=== PATIENT | female | born 1985 | race Hispanic/Latino ===

== ENCOUNTER 2018-12-27 15:55 | Emergency (ER) | payer SELFPAY ==
[2018-12-27 17:09] LABS: CREATININE 0.9 mg/dL (0.5-1.5); POTASSIUM 3.7 mmol/L (3.5-5.1)
[2018-12-27 17:11] LABS: BASOPHILS % (AUTO) 1.1 % (0.0-5.0); EOSINOPHILS % (AUTO) 2.4 % (0.0-8.0); HEMATOCRIT 39.5 % (36-48); LYMPHOCYTES % (AUTO) 27.9 % (21.0-51.0); MEAN CORPUSCULAR HEMOGLOBIN 30.2 pg (27.0-33.0); MEAN CORPUSCULAR HGB CONC 33.7 g/dL (32.0-36.0); MEAN CORPUSCULAR VOLUME 89.6 fL (79-99); MONOCYTES % (AUTO) 5.4 % (3.0-13.0); NEUTROPHILS % (AUTO) 63.2 % (40.0-77.0); PLATELET COUNT (AUTO) 268 K/uL (130-400); RED BLOOD CELL COUNT(AUTO) 4.41 MIL/uL (4.00-5.50); RED CELL DISTRIBUTION WIDTH 14.6 % (11.0-15.5); WHITE BLOOD COUNT (AUTO) 7.2 K/uL (4.8-10.8)
[2018-12-27 17:14] LABS: ALBUMIN 3.8 g/dL (3.5-5.0); BILIRUBIN,TOTAL 0.5 mg/dL (0.2-1.0); TOTAL PROTEIN, SERUM 7.7 g/dL (6.0-8.3)
[2018-12-27] MEDS ORDERED: IBUPROFEN 600 MG TABLET ONE (17:37)
== END 2018-12-27 17:58 | disposition home or self-care (01) ==
LOC: EDH 15:55
DX: R07.89 Other chest pain (principal); R07.81 Pleurodynia
CPT/HCPCS: 36415; 71045; 80053; 81025; 84484; 85025; 93005

== ENCOUNTER 2021-10-25 22:33 | Emergency (ER) | payer OTHER ==
[~2021-10-25] VITALS: Ht 157.5 cm; Wt 81.6 kg
[2021-10-25 22:38] VITALS: BP 134/91
[2021-10-25] MEDS ORDERED: NAPR500T6 PO (23:25)
[2021-10-25] MEDS ORDERED: ACET1TAB25 PO (23:25)
[2021-10-25] MEDS ORDERED: AMOX1TAB16 PO (23:25)
[2021-10-25] MEDS ORDERED: KETOROLAC 30MG VIAL (30MG/ML) IM ONE (23:30)
[2021-10-25] MEDS ORDERED: ACETAMINOPHEN WITH CODEINE 1 TAB TAB PO ONE (23:30)
[2021-10-25] MEDS ORDERED: AMOX/CLAV 875/125MG TAB PO ONE (23:30)
== END 2021-10-25 23:29 | disposition home or self-care (01) ==
LOC: EDH 22:33
DX: K08.89 Other specified disorders of teeth and supporting structures (principal); R22.0 Localized swelling, mass and lump, head; Z79.899 Other long term (current) drug therapy
CPT/HCPCS: 96372; 99283; J1885

== ENCOUNTER 2022-06-29 00:39 | Emergency (ER) | payer OTHER ==
[~2022-06-29] VITALS: Ht 157.5 cm; Wt 88.0 kg
[~2022-06-29 00:39] MED LIST: ACET-2079 PO; AMOX1TAB16 PO; NAPR500T6 PO
[2022-06-29] MEDS ORDERED: IBUP-1493 PO (01:49)
[2022-06-29] MEDS ORDERED: AMOX500C2 PO (01:49)
[2022-06-29 02:30] VITALS: BP 135/63
== END 2022-06-29 02:37 | disposition home or self-care (01) ==
LOC: EDH 00:39
DX: K04.7 Periapical abscess without sinus (principal); Z79.1 Long term (current) use of non-steroidal anti-inflammatories (NSAID)

== ENCOUNTER 2023-08-15 08:19 | Emergency (ER) | payer BC, OTHER ==
[~2023-08-15] VITALS: Ht 157.5 cm; Wt 74.8 kg
[~2023-08-15 08:19] MED LIST changes: +AMOX500C2 PO; +IBUP-1493 PO
[2023-08-15 09:15] LABS: BASOPHILS # (AUTO) 0.03 K/uL (0.00-0.20); BASOPHILS % (AUTO) 0.3 % (0.0-5.0); EOSINOPHILS # (AUTO) 0.04 K/uL (0.00-0.70); EOSINOPHILS % (AUTO) 0.4 % (0.0-8.0); HEMATOCRIT 47.7 % (36-48); IMMATURE GRANULOCYTE ABSOLUTE 0.04 K/uL (0-1); LYMPHOCYTES # (AUTO) 0.6 K/uL (1.0-4.8); MEAN CORPUSCULAR HEMOGLOBIN 30.7 pg (27.0-33.0); MEAN CORPUSCULAR HGB CONC 33.5 g/dL (32.0-36.0); MEAN CORPUSCULAR VOLUME 91.4 fL (79-99); MONOCYTES # (AUTO) 0.3 K/uL (0.1-1.0); MONOCYTES % (AUTO) 2.7 % (3.0-13.0); NEUTROPHILS % (AUTO) 91.2 % (40.0-77.0); PLATELET COUNT (AUTO) 235 K/uL (130-400); RED BLOOD CELL COUNT(AUTO) 5.22 MIL/uL (4.00-5.50); RED CELL DISTRIBUTION WIDTH 13.4 % (11.0-15.5)
[2023-08-15 09:26] LABS: CREATININE 0.8 mg/dL (0.5-1.5); POTASSIUM 4.3 mmol/L (3.5-5.1)
[2023-08-15 09:29] LABS: APPEARANCE,URINE CLOUDY (CLEAR); BILIRUBIN,URINE NEGATIVE (NEGATIVE); COLOR,URINE YELLOW (YELLOW); GLUCOSE, URINE (UA) NEGATIVE (NEGATIVE); KETONES,URINE 40 mg/dL (NEGATIVE); LEUKOCYTE ESTERASE ,URINE 500 Leu/uL (NEGATIVE); NITRATE,URINE NEGATIVE (NEGATIVE); OCCULT BLOOD,URINE SMALL (NEGATIVE); PROTEIN,URINE 20 mg/dL (NEGATIVE); UROBILINOGEN,URINE 0.2 mg/dL (0.2-1.0)
[2023-08-15 09:31] LABS: BILIRUBIN,TOTAL 1.4 mg/dL (0.2-1.0); TOTAL PROTEIN, SERUM 8.5 g/dL (6.0-8.3)
[2023-08-15 09:42] LABS: ADD UA MICROSCOPIC YES
[2023-08-15 09:44] LABS: BACTERIA,URINE RARE /HPF (None Seen); MUCUS,URINE RARE LPF (None Seen); SQUAMOUS EPITHELIAL CELL,UR MANY /HPF (0-2)
[2023-08-15] MEDS ORDERED: IBUPROFEN 600 MG TABLET PO ONE (10:00)
[2023-08-15] MEDS ORDERED: ONDANSETRON ODT 4MG TAB SL ONE (10:00)
[2023-08-15] MEDS ORDERED: FAMO20TA8 PO (11:15)
[2023-08-15] MEDS ORDERED: CEPH500B PO (11:15)
[2023-08-15 11:23] VITALS: BP 131/78; PULSE 78; RESP 18; O2SAT 99
== END 2023-08-15 11:27 | disposition home or self-care (01) ==
LOC: EDH 08:19
DX: N39.0 Urinary tract infection, site not specified (principal); K80.20 Calculus of gallbladder without cholecystitis without obstruction
CPT/HCPCS: 36415; 76705; 80053; 81001; 85025; 87088

== ENCOUNTER 2024-08-26 05:47 | Emergency (ER) | payer BC ==
[~2024-08-26] VITALS: Ht 157.5 cm; Wt 81.6 kg
[~2024-08-26 05:47] MED LIST changes: +CEPH500B PO; +FAMO20TA8 PO; +NAPR-1506 PO; -NAPR500T6 PO
[2024-08-26 05:48] VITALS: TEMP 98.7
--- NOTE | 2024-08-26 06:10 | NUR ---
PT CARE ASSUMED AT THIS TIME
[2024-08-26] MEDS: ibuPROFEN 600 MG TABLET PO ONE (06:17)
[2024-08-26 06:21] VITALS: BP 115/68; PULSE 71; RESP 18; O2SAT 100
--- NOTE | 2024-08-26 06:40 | ERN ---
ED Note History of Present Illness Stated Complaint: WRIST INJURY Chief Complaint: Wrist Pain/Injury Time Seen by MD: 06:01 Dictation: 39-year-old female presented to the ER complaining of right side wrist pain, states that she fell on her wrist about 4 months ago, never had a workup done in the recently possible folic ago she noticing a bump on her right wrist which became painful lately. Allergies: Coded Allergies: No Known Drug Allergies (Unverified Allergy, Unknown, 10/25/21) Home Meds Active Scripts Ibuprofen (Ibuprofen) 600 Mg Tablet, 1 TAB PO TID for pain for 5 Days, #20 TAB 0 Refills with food Prov:GENEVA BHATIA MD 08/26/24 Famotidine (Famotidine) 20 Mg Tablet, 20 MG PO DAILY, #30 TAB Prov:VITA ALBERT [facility] 08/15/23 Cephalexin Monohydrate (Keflex) 500 Mg Cap, 500 MG PO TID for 7 Days, #21 CAP Prov:VITA ALBERT V [facility] 08/15/23 Ibuprofen (Motrin/Advil) 800 Mg Tab, 800 MG PO TID PRN for PAIN, #30 TAB Prov:BOZENA PALACIOS MD 06/29/22 Amoxicillin (Amoxicillin) 500 Mg Capsule, 500 MG PO TID for 10 Days, #30 CAP 0 Refills Prov:BOZENA PALACIOS MD 06/29/22 Acetaminophen with Codeine (Acetaminophen-Cod #3 Tablet) 1 Each Tablet, 1 EACH PO Q4HPRN PRN for PAIN LEVEL 7 TO 10, #7 TAB Prov:JOSY BEY 10/25/21 Naproxen (Naproxen) 500 Mg Tablet.dr, 500 MG PO BIDPC, #15 TAB Prov:JOSY BEY 10/25/21 Amoxicillin/Potassium Clav (Amox Tr-K Clv 875-125 mg Tab) 1 Each Tablet, 1 EACH PO BID, #15 TAB Prov:JOSY BEY 10/25/21 Past Medical History Past Medical History: No Pertinent History Surgical History: BTL Family History: HTN Social History: ETOH, Lives with family LMP: Aug 17, 2024 Review of System Dictation NEGATIVE EXCEPT PER HPI Constitutional: Negative for fever,chills, and weight loss Eyes: Negative for injury, pain,redness, and discharge ENT: Negative for injury,pain or swelling Cardiovascular: denies chest pain, palpitations, and edema Respiratory: Negative for shortness of breath, cough, and wheezing, Abdomen/GI: Negative for abdominal pain, nausea, vomiting, diarrhea, and constipation Back: Negative for injury and pain : Negative for injury, bleeding and discharge MS/Extremity: Right wrist pain Skin: Negative for rash, and discoloration Neuro: Negative for headache, weakness, numbness, tingling, and seizure Psych: Negative for suicide ideation, homicidal ideation, and hallucinations Initial Vital Sign VS Vital Signs Date Time Temp Pulse Resp B/P (MAP) Pulse Ox O2 Delivery O2 Flow Rate FiO2 08/26/24 05:48 98.8 72 18 120/73 98 Room Air 0 08/26/24 06:21 21 Physical Exam Dictation General: awake, alert, NAD Head/Face: Normocephalic, atraumatic Eyes: PERRL, EOMI, vision at baseline ENT: oral cavity clear, TMs clear, no signs of infection Neck: Trachea midline, supple, no nuchal rigidity Cardiovascular: RRR, normal S1/S2, No MRGs, no JVD Respiratory: CTAB, no respiratory distress, No rales or wheezes Abdomen: Soft , no tender Skin: Warm, dry, normal turgor, no rash MS/Extremity: Right wrist mass likely a ganglion cyst which is tender to palpation. Neuro: COAx4, GCS 15, strength 5/5, CN 2-12 intact, normal cerebellar exam, normal gait, Psych: Normal behavior, mood, and affect normal ED Course ED Course Orders Procedure Category Date Status Time Wrist Comp 3+Vws Rt RAD 08/26/24 Taken 06:08 Ibuprofen 600 Mg PHA 08/26/24 Complete Tablet (Motrin) 06:30 Current Medications Medications (Trade) Dose Ordered Sig/Deon Route PRN Reason Start Time Stop Time Status Last Admin Dose Admin Ibuprofen (moTRIN) 600 mg ONCE ONCE PO 08/26/24 06:30 08/26/24 06:31 DC 08/26/24 06:17 Vital Signs Date Time Temp Pulse Resp B/P (MAP) Pulse Ox O2 Delivery O2 Flow Rate FiO2 08/26/24 06:21 71 18 115/68 100 Room Air* 0 21 08/26/24 05:48 98.8 72 18 120/73 98 Room Air 0 Medical Decision Making MDM 39-year-old female presented to the ER complaining of right side wrist pain, states that she fell on her wrist about 4 months ago, never had a workup done in the recently possible folic ago she noticing a bump on her right wrist which became painful lately. Rationale: Wrist fracture, ganglion cyst X-ray three views of right wrist ordered Ibuprofen 600 mg ordered If x-ray negative patient will be discharged home with recommendation to continue anti-inflammatory p.r.n., were a risks brace and follow up with surgeon/orthopedic as outpatient. DX & DISP Disposition: Discharge Departure Impression: Primary Impression: Ganglion cyst of wrist Condition: Stable Scripts Ibuprofen (Ibuprofen) 600 Mg Tablet 1 TAB PO TID for pain for 5 Days, #20 TAB 0 Refills with food Prov: GENEVA BHATIA MD 08/26/24 Additional Instructions: RETURN TO ER FOR ANY ACUTE OR WORSENING SYMPTOMS. FOLLOW-UP IN 1-2 DAYS WITH PRIMARY PROVIDER FOR RECHECK OF TODAY'S SYMPTOMS. Referrals: BEVERLY STEPHEN MD (PCP) Time of Disposition: 07:00 GENEVA BHATIA MD Aug 26, 2024 06:40
[2024-08-26] MEDS ORDERED: IBUP-2070 PO (06:47)
--- NOTE | 2024-08-26 08:19 | HMCIMG ---
WRIST COMP 3+VWS RT REASON: fall, pain TECHNIQUE: 2 views were obtained. FINDINGS: There is no evidence of fracture or dislocation. There is no joint effusion. The soft tissues appear unremarkable. There is no evidence of a radiopaque foreign body. IMPRESSION: No acute findings.
== END 2024-08-26 07:11 | disposition home or self-care (01) ==
LOC: EDH 05:47
DX: M67.431 Ganglion, right wrist (principal); Z79.1 Long term (current) use of non-steroidal anti-inflammatories (NSAID); Z79.899 Other long term (current) drug therapy; Z98.51 Tubal ligation status
CPT/HCPCS: 73110; 99283